=== PATIENT | female | born 1955 | race Caucasian/White ===

== ENCOUNTER 2017-09-05 23:21 | Emergency (ER) | payer BC ==
[~2017-09-05] VITALS: Ht 157.5 cm; Wt 62.4 kg
[2017-09-05] MEDS ORDERED: VITA1000 PO (23:40)
[2017-09-05] MEDS ORDERED: ATOR20TA15 PO (23:40)
[2017-09-05] MEDS ORDERED: ZOFR4TAB PO (23:40)
[2017-09-05] MEDS ORDERED: PANT20TA2 PO (23:40)
[2017-09-05] MEDS ORDERED: CULT10CA4 PO (23:40)
[2017-09-05] MEDS ORDERED: VITA200C3 PO (23:40)
[2017-09-05] MEDS ORDERED: ESTETAB3 PO (23:40)
[2017-09-05] MEDS ORDERED: CALC600T4 PO (23:40)
[2017-09-05] MEDS ORDERED: ASPI-516 CHEW (23:40)
[2017-09-05] MEDS ORDERED: TEGR400T PO (23:40)
[2017-09-05] MEDS ORDERED: TEGR100T PO (23:40)
[2017-09-05] MEDS ORDERED: FLUT50SP EACH NARE (23:40)
[2017-09-05 23:41] VITALS: BP 126/75; PULSE 99; RESP 16; TEMP 99.3; O2SAT 95
[2017-09-06] MEDS ORDERED: LANS15CA PO (00:03)
[2017-09-06] MEDS ORDERED: SODIUM CHLOR 0.9% 1000 ML INJ 1,000 ML IV SCH (00:08)
[2017-09-06] MEDS ORDERED: SODIUM CHLORIDE 0.9% FLUSH 10 ML FLUSH IV FLUSH PRN (00:15)
--- NOTE | 2017-09-06 00:17 | PD ---
HPI Chief Complaint: GI Complaint Time Seen by Provider: 00:08 Travel History International Travel<30 days: No Contact w/Intl Traveler<30days: No Traveled to known affect area: No History of Present Illness HPI 62-year-old female presents to the emergency department by private transportation in the care of her spouse for evaluation of 24 hours of watery green diarrhea with streaks of blood. Patient has had associated crampy abdominal pain that she rate 6-7/10 intensity. Patient's had nausea without vomiting. Patient denies fever chills. No dysuria frequency urgency. Patient denies history of diarrheal illness Crohn's ulcerative colitis diverticulosis or diverticulitis. No recent antibiotic use. Patient is traveling does not recall any specific older bad food or dietary indiscretion also denies any well water ingestion or foreign travel. Patient is status post previous cholecystectomy and . Patient takes omeprazole for reflux esophagitis and Tegretol for history of seizure. Patient does not report any other prescription medications. Patient is unable to identify exacerbating or alleviating factors. Patient has taken no medications for discomfort. PFSH Past Medical History Narrative Medical Dyslipidemia seizure GERD cerebral AV malformation repair cholecystectomy; no tobacco use no alcohol use; nursing notes reviewed Hx Anticoagulant Therapy: Yes (81 mg asa) High Cholesterol: Yes Diminished Hearing: No Tetanus Vaccination: Unknown Influenza Vaccination: No ?: Not LMP: post menapausal Menopausal: Yes Past Surgical History Section: Yes Neurologic Surgery: Yes (AV malformation repair) Social History Alcohol Use: No Tobacco Use: No Substance Use: No Allergies-Medications (Allergen,Severity, Reaction): Coded Allergies: Iodinated Contrast- Oral and IV Dye (Verified Allergy, Severe, Anaphylaxis , 09/05/17) Penicillins (Verified Allergy, Severe, childhood, 09/05/17) banana (Verified Allergy, Severe, Anaphylaxis, 09/05/17) egg (Verified Allergy, Severe, abd pain, 09/05/17) gatifloxacin (Verified Allergy, Severe, Hives, 09/05/17) Uncoded Allergies: antihistamines (Allergy, Severe, Seizures, 09/05/17) Reported Meds & Prescriptions Reported Meds & Active Scripts Active Flagyl (Metronidazole) 500 Mg Tab 500 Mg PO TID 7 Days Reported Lansoprazole 15 Mg Capdr 15 Mg PO DAILY Culturelle (Lactobacillus Rhamnosus (GG)) 10 Billion Cell Cap 1 Cap PO DAILY Aspirin 81 Mg Chew 81 Mg CHEW DAILY Vitamin E 200 Unit Cap 200 Units PO DAILY Chayito-C 500 mg Tablet (Ascorbate Calcium/Bioflavonoid) 500 Mg-200 Mg Tablet 1 Tab PO DAILY Vitamin D-1000 (Cholecalciferol) 1,000 Unit Tab 1,000 Units PO DAILY Calcium Carbonate 1,500 Mg Tab 1,500 Mg PO DAILY 1,500 mg calcium carbonate (600 mg elemental calcium) Zofran (Ondansetron HCl) 4 Mg Tab 4 Mg PO Q6HR PRN Fluticasone Nasal [place] 50 Mcg/Act Naspr 100 Mcg EACH NARE DAILY 50 mcg/spray Atorvastatin (Atorvastatin Calcium) 20 Mg Tab 20 Mg PO HS Tegretol-Xr 12 HR (Carbamazepine) 100 Mg Tab 100 Mg PO Q12HR Tegretol-Xr 12 HR (Carbamazepine) 400 Mg Tab 400 Mg PO Q12HR Review of Systems Except as stated in HPI: all other systems reviewed are Neg General / Constitutional: No: Fever, Chills HENT: No: Congestion Cardiovascular: No: Chest Pain or Discomfort Respiratory: No: Shortness of Breath Gastrointestinal: Positive: Nausea, Diarrhea, Abdominal Pain, No: Vomiting Genitourinary: No: Dysuria, Flank Pain Musculoskeletal: No: Myalgias, Arthralgias Skin: No Rash Neurologic: No: Weakness, Dizziness, Syncope Psychiatric: No: Anxiety Hematologic/Lymphatic: No: Lymph Node Enlargement Physical Exam Narrative GENERAL: Well-developed well-nourished female no acute distress no respiratory distress SKIN: Warm and dry. HEAD: Normocephalic. EYES: No scleral icterus. No injection or drainage. NECK: Supple, trachea midline. No JVD or lymphadenopathy. CARDIOVASCULAR: Regular rate and rhythm without murmurs, gallops, or rubs. RESPIRATORY: Breath sounds equal bilaterally. No accessory muscle use. GASTROINTESTINAL: Abdomen soft, diffusely tender without guarding or rebound, nondistended. Rectal exam: Normal sphincter tone no fissure no prolapsed hemorrhoids no palpable mass green mucoid stool Hemoccult positive grossly positive for blood erythema to the soft tissue consistent with contact dermatitis MUSCULOSKELETAL: No cyanosis, or edema. BACK: Nontender without obvious deformity. No CVA tenderness. Data Data Last Documented VS Vital Signs Date Time Temp Pulse Resp B/P (MAP) Pulse Ox O2 Delivery O2 Flow Rate FiO2 4/24/18 01:57 82 18 120/70 (87) 97 Room Air 09/05/17 23:41 99.3 Orders Orders Complete Blood Count With Diff (09/06/17 00:08) Comprehensive Metabolic Panel (09/06/17 00:08) Lipase (09/06/17 00:08) Lactic Acid (09/06/17 00:08) Urinalysis - C+S If Indicated (09/06/17 00:08) Ct Abd/Pel W/O Iv Contrast (09/06/17 00:08) Iv Access Insert/Monitor (09/06/17 00:08) Ecg Monitoring (09/06/17 00:08) Oximetry (09/06/17 00:08) Sodium Chlor 0.9% 1000 Ml Inj (Ns 1000 M (09/06/17 00:08) Sodium Chloride 0.9% Flush (Ns Flush) (09/06/17 00:15) Enteric Path (Stool) (09/06/17 00:08) Type And Screen (09/06/17 00:08) Carbamazepine (Tegretol) (09/06/17 00:27) Morphine Inj (Morphine Inj) (09/06/17 00:45) Sodium Chlor 0.9% 1000 Ml Inj (Ns 1000 M (09/06/17 01:45) Metronidazole 500 Mg Inj (Flagyl 500 Mg (09/06/17 02:00) Ed Discharge Order (09/06/17 02:04) Labs Laboratory Tests Test 09/06/17 00:25 09/06/17 01:45 White Blood Count 8.4 TH/MM3 Red Blood Count 4.79 MIL/MM3 Hemoglobin 15.3 GM/DL Hematocrit 44.8 % Mean Corpuscular Volume 93.7 FL Mean Corpuscular Hemoglobin 31.9 PG Mean Corpuscular Hemoglobin Concent 34.1 % Red Cell Distribution Width 12.4 % Platelet Count 366 TH/MM3 Mean Platelet Volume 8.0 FL Neutrophils (%) (Auto) 64.2 % Lymphocytes (%) (Auto) 21.2 % Monocytes (%) (Auto) 12.5 % Eosinophils (%) (Auto) 1.0 % Basophils (%) (Auto) 1.1 % Neutrophils # (Auto) 5.4 TH/MM3 Lymphocytes # (Auto) 1.8 TH/MM3 Monocytes # (Auto) 1.0 TH/MM3 Eosinophils # (Auto) 0.1 TH/MM3 Basophils # (Auto) 0.1 TH/MM3 CBC Comment DIFF FINAL Differential Comment Blood Urea Nitrogen 6 MG/DL Creatinine 0.72 MG/DL Random Glucose 128 MG/DL Total Protein 8.1 GM/DL Albumin 4.2 GM/DL Calcium Level 9.1 MG/DL Alkaline Phosphatase 130 U/L Aspartate Amino Transf (AST/SGOT) 14 U/L Alanine Aminotransferase (ALT/SGPT) 27 U/L Total Bilirubin 0.3 MG/DL Sodium Level 135 MEQ/L Potassium Level 3.5 MEQ/L Chloride Level 102 MEQ/L Carbon Dioxide Level 26.0 MEQ/L Anion Gap 7 MEQ/L Estimat Glomerular Filtration Rate 83 ML/MIN Lactic Acid Level 1.8 mmol/L Lipase 106 U/L Carbamazepine (Tegretol) Level 4.8 MCG/ML Urine Collection Type CLEAN CATCH Urine Color YELLOW Urine Turbidity CLEAR Urine pH 6.0 Urine Specific [place] LESS/EQUAL 1.005 Urine Protein TRACE mg/dL Urine Glucose (UA) NEG mg/dL Urine Ketones NEG mg/dL Urine Occult Blood TRACE Urine Nitrite NEG Urine Bilirubin NEG Urine Urobilinogen 0.2 MG/DL Urine Leukocyte Esterase NEG Urine RBC 0-3 /hpf Urine WBC 3-5 /hpf Urine Squamous Epithelial Cells 0-5 /hpf Urine Hyaline Casts 3-5 /lpf Urine Mucus FEW /lpf Microscopic Urinalysis Comment CULT NOT INDICATED MDM Medical Decision Making Medical Screen Exam Complete: Yes Emergency Medical Condition: Yes Medical Record Reviewed: Yes Interpretation(s) lactic acid: 1.8, not elevated Carbamazepine level: 4.8, therapeutic Last Impressions Abdomen/Pelvis CT 09/06/17 [id number] Signed Impressions: Service Date/Time: Wednesday, September 06, 2017 00:31 - CONCLUSION: 1. Mural thickening of the colon, especially on the left side with some pericolonic fat stranding characteristic of a colitis. 2. 13 mm left adrenal adenoma. Previous cholecystectomy. Jann Vallejo MD CBC & BMP Diagram 09/06/17 00:25 Total Protein 8.1, Albumin 4.2, Calcium Level 9.1, Alkaline Phosphatase 130 H, Aspartate Amino Transf (AST/SGOT) 14 L, Alanine Aminotransferase (ALT/SGPT) 27, Total Bilirubin 0.3 Vital Signs Date Time Temp Pulse Resp B/P (MAP) Pulse Ox O2 Delivery O2 Flow Rate FiO2 09/06/17 00:20 97 09/05/17 23:41 99.3 99 16 126/75 (92) 95 Differential Diagnosis Diarrheal illness, colitis, diverticulitis, gastroenteritis, food poisoning, upper GI bleed, AVM, lower GI bleed, hemorrhoidal bleeding, fissure, contact dermatitis Narrative Course IV access obtained specimens collected and sent for resulting patient administered a liter of normal saline Diagnosis Primary Impression: Colitis, acute Referrals: Primary Care Physician call for appointment Patient Instructions: General Instructions Additional Instructions: Increase fluid hydration Monitor your temperature every 4 hours with thermometer take acetaminophen/ Tylenol as needed for fever 100.4F or greater Follow clear liquid diet for next 12-24 hours advance as tolerated to bland/ brat diet and advance to regular diet avoiding fried and fatty foods Complete course of antibiotic as prescribed Add probiotic supplement diet Return to the emergency department for any concerns pain, fever, vomiting, or change in condition Med/Other Pt SpecificInfo: Prescription(s) given Scripts Metronidazole (Flagyl) 500 Mg Tab 500 MG PO TID for Infection for 7 Days, TAB 0 Refills Prov: Ying Tabor MD 09/06/17 Disposition: 01 DISCHARGE HOME Condition: Stable Ying Tabor MD Sep 06, 2017 00:17
[2017-09-06 00:20] VITALS: O2SAT 97
[2017-09-06 00:45] LABS: AUTOMATED NEUTROPHIL # 5.4 TH/MM3 (1.8-7.7); BASOPHIL # 0.1 TH/MM3 (0-0.2); BASOPHIL % 1.1 % (0.0-2.0); EOSINOPHIL # 0.1 TH/MM3 (0-0.4); HEMATOCRIT 44.8 % (35.0-46.0); HEMOGLOBIN 15.3 GM/DL (11.6-15.3); LYMPH % 21.2 % (9.0-44.0); LYMPHOCYTE # 1.8 TH/MM3 (1.0-4.8); MEAN CELL VOLUME 93.7 FL (80.0-100.0); MEAN CORPUSCULAR HEMOGLOBIN 31.9 PG (27.0-34.0); MEAN CORPUSCULAR HGB CONC 34.1 % (32.0-36.0); MONO % 12.5 % (0.0-8.0); NEUT % 64.2 % (16.0-70.0); PLATELET COUNT 366 TH/MM3 (150-450); RED BLOOD COUNT 4.79 MIL/MM3 (4.00-5.30); RED CELL DISTRIBUTION WIDTH 12.4 % (11.6-17.2); WHITE BLOOD COUNT 8.4 TH/MM3 (4.0-11.0)
[2017-09-06] MEDS ORDERED: MORPHINE SULFATE 2 MG/ML SYRINGE IV PUSH ONE (00:45)
[2017-09-06 00:52] LABS: CHLORIDE 102 MEQ/L (98-107); SODIUM (NA) 135 MEQ/L (136-145)
[2017-09-06 00:56] LABS: ALBUMIN 4.2 GM/DL (3.4-5.0); BLOOD UREA NITROGEN 6 MG/DL (7-18); CALCIUM 9.1 MG/DL (8.5-10.1); GLUCOSE,RANDOM 128 MG/DL (74-106)
[2017-09-06 00:59] LABS: ALT (GPT) 27 U/L (10-53); AST (GOT) 14 U/L (15-37); CREATININE 0.72 MG/DL (0.50-1.00); GLOMERULAR FILTRATION RATE 83 ML/MIN (>89)
[2017-09-06 01:01] LABS: TOTAL BILIRUBIN ADULT 0.3 MG/DL (0.2-1.0); TOTAL PROTEIN 8.1 GM/DL (6.4-8.2)
[2017-09-06 01:02] LABS: ALKALINE PHOSPHATASE 130 U/L (45-117)
--- NOTE | 2017-09-06 01:03 | RADRPT ---
EXAM DATE/TIME: 09/06/2017 00:31 [facility] COMPARISON: No previous studies available for comparison. INDICATIONS : Abdominal pain. Diarrhea with blood. ORAL CONTRAST: No oral contrast ingested. RADIATION DOSE: 6.85 CTDIvol (mGy) MEDICAL HISTORY : None SURGICAL HISTORY : section. ENCOUNTER: Initial ACUITY: 1 day PAIN SCALE: 4/10 LOCATION: Bilateral lower quadrant TECHNIQUE: Volumetric scanning of the abdomen and pelvis was performed. Using automated exposure control and ad justment of the mA and/or kV according to patient size, radiation dose was kept as low as reasonably achievable to obtain optimal diagnostic quality images. DICOM format image data is available electro nically for review and comparison. FINDINGS: Lung bases are clear except for tiny 3 mm nodule right lower lobe. There is mural thickening of the colon especially the left colon with some pericolonic fat stranding. Findings most characteristic of a colitis. No acute findings in the liver, spleen, kidneys or pancreas. 13 mm left adrenal adenoma. Right adrena l unremarkable. Previous cholecystectomy. There is no free fluid. No bowel obstruction. No adenopathy. No acute bony abnormalities. CONCLUSION: 1. Mural thickening of the colon, especially on the left side with some pericolonic fat stranding gisella racteristic of a colitis. 2. 13 mm left adrenal adenoma. Previous cholecystectomy. Jann Vallejo MD on September 06, 2017 at 0:57 Board Certified Radiologist. This report was verified electronically.
[2017-09-06] MEDS ORDERED: METR-1 PO (01:26)
[2017-09-06] MEDS ORDERED: SODIUM CHLOR 0.9% 1000 ML INJ 1,000 ML IV ONE (01:45)
[2017-09-06 01:57] VITALS: BP 120/70; PULSE 82; RESP 18; O2SAT 97
[2017-09-06 01:58] LABS: BILIRUBIN, URINE NEG (NEG); BLOOD, URINE TRACE (NEG); GLUCOSE,URINE NEG (NEG); KETONE, URINE NEG (NEG); NITRITE,URINE NEG (NEG); URINE COLOR YELLOW (YELLW/STRAW); URINE LEUKOCYTE ESTERASE NEG (NEG)
[2017-09-06] MEDS ORDERED: metroNIDAZOLE 500 MG INJ 100 ML IV ONE (02:00)
[2017-09-06 02:02] LABS: MUCUS URINE FEW /lpf (OCC)
[2017-09-06 02:04] LABS: RBC, URINE 0-3 /hpf (0-3); SQUAMOUS EPITHELIAL CELL URINE 0-5 /hpf (0-5)
== END 2017-09-06 02:26 | disposition home or self-care (01) ==
LOC: PHED 23:21
DX: K52.9 Noninfective gastroenteritis and colitis, unspecified (principal); D35.02 Benign neoplasm of left adrenal gland; K21.0 Gastro-esophageal reflux disease with esophagitis; E78.00 Pure hypercholesterolemia, unspecified; E78.5 Hyperlipidemia, unspecified; Z86.69 Personal history of other diseases of the nervous system and sense organs; Z79.899 Other long term (current) drug therapy; Z79.82 Long term (current) use of aspirin; Z88.0 Allergy status to penicillin
CPT/HCPCS: 74176; 80053; 80156; 81001; 83605; 83690; 85025; 86850; 86900; 86901; 87506; 96361; 96365; 99284; J7030